=== PATIENT | male | born 1950 | race Caucasian/White ===

== ENCOUNTER 2019-10-06 10:38 | Emergency (ER) | payer MEDICARE, BC ==
[2019-10-06 10:50] VITALS: BP 149/80
--- NOTE | 2019-10-06 11:25 | XRAY Report ---
Reason: trauma, limited ROM/pain,bruising Procedure Date: 10/06/2019 Accession Number: [id number] / [id number] Procedure: XR - Shoulder 3 View RT CPT Code: Final Report FULL RESULT: EXAM: RIGHT SHOULDER RADIOGRAPHY EXAM DATE: 10/06/2019 11:17 AM. CLINICAL HISTORY: Right shoulder pain and limited range of motion after fall COMPARISON: None. TECHNIQUE: 3 views. FINDINGS: Bones: No fracture or bone lesion. Joints: Normal alignment at the glenohumeral and acromioclavicular joints. Soft tissues: Amorphous calcifications superior to the acromioclavicular joint. Partially imaged median sternotomy wires. The visualized hemithorax is otherwise unremarkable. No soft tissue swelling. IMPRESSION: 1. Amorphous calcifications superior to the acromioclavicular joints, which could represent degenerative change or sequela of prior soft tissue injury. 2. No acute bony abnormality. RADIA
--- NOTE | 2019-10-06 12:15 | ED Physician Documentation ---
PD HPI UPPER EXT INJURY - Stated complaint Stated Complaint: R SHOULDER INJURY - Chief complaint Chief Complaint: Ext Problem - History obtained from History obtained from: Patient - History of Present Illness Location: Other (5 days ago he was tripped by dog and [place] He has had bruising in that area and pain in the shoulder ever since. No other injuries.) Review of Systems Constitutional: denies: Fever, Chills Cardiac: denies: Chest pain / pressure, Palpitations Respiratory: denies: Dyspnea, Cough PD PAST MEDICAL HISTORY - Present Medications Home Medications: Ambulatory Orders Medication Instructions Recorded Confirmed Atenolol [Tenormin] 50 mg PO 10/06/19 Atorvastatin [Lipitor] 10/06/19 10/06/19 Hydrochlorothiazide 12.5 mg PO 10/06/19 Physical Therapy 1 unit TD ONCE #1 10/06/19 amLODIPine [Norvasc] 5 mg PO ONCE 10/06/19 10/06/19 - Allergies Allergies/Adverse Reactions: Allergies Allergy/AdvReac Type Severity Reaction Status Date / Time No Known Drug Allergies Allergy Verified 10/06/19 10:45 PD ED PE NORMAL - Vitals Vital signs reviewed: Yes - General General: Alert and oriented X 3, No acute distress - Neck Neck: Supple, no meningeal sign, No bony TTP - Extremities Extremities: Other (He is tender over the right acromioclavicular joint, there is no glenohumeral tenderness. He does have a lot of pain with abduction and can only come up to about 20 or 30 degrees. Internal/external rotation elicits some pain but not too much. Neurovascularly intact in the hand. There is bruising over the bicep, but no tenderness there.) - Neuro Neuro: Alert and oriented X 3, Normal speech Results - Vitals Vitals: Vital Signs - 24 hr 10/06/19 10:42 Temperature 36.5 C Heart Rate 57 L Respiratory 18 Rate Blood Pressure 149/80 H O2 Saturation 100 Oxygen O2 Source Room air - Rads (name of study) 3 views of the right shoulder Radiology: EMP read contemporaneously (Degenerative changes without acute trauma) PD MEDICAL DECISION MAKING - ED course ED course: 69-year-old gentleman with an isolated right shoulder injury 5 days ago, seems like a combination of a mild AC joint separation along with a shoulder sprain or strain. He was given a sling but discussed the limitations of sling use and range of motion exercises and a order for physical therapy. He declined prescription pain medication. Departure - Departure Disposition: 01 Home, Self Care Clinical Impression: Right shoulder strain Qualifiers: Encounter type: initial encounter Qualified Code(s): S46.911A - Strain of unspecified muscle, fascia and tendon at shoulder and upper arm level, right arm, initial encounter Condition: Good Record reviewed to determine appropriate education?: Yes Instructions: ED Sprain AC Joint, Exercises Shoulder Flexible Shaft Winder Rotation Follow-Up: [facility] [Provider Group] Prescriptions: Physical Therapy 1 unit TD ONCE #1 Comments: As discussed, your x-ray looks okay except for some chronic degenerative changes. Follow-up with the orthopedic surgeon in a week or 2 if not improving, remember to do the range of motion exercises and not use the sling all the time. Ibuprofen as needed for pain.
== END 2019-10-06 12:20 | disposition home or self-care (01) ==
LOC: ED 10:38
DX: S46.811A Strain of other muscles, fascia and tendons at shoulder and upper arm level, right arm, initial encounter (principal); W01.0XXA Fall on same level from slipping, tripping and stumbling without subsequent striking against object, initial encounter; Y92.830 Public park as the place of occurrence of the external cause
CPT/HCPCS: 99283

== ENCOUNTER 2021-09-30 18:13 | Emergency (ER) | payer MEDICARE, BC ==
--- NOTE | 2021-09-30 18:51 | ED Physician Documentation ---
History of Present Illness - Stated complaint Stated Complaint: WEAKNESS - Chief complaint Chief Complaint: General - History obtained from History obtained from: Patient - History of Present Illness Timing: How many days ago Pain level max: 0 Pain level now: 0 - Additonal information Additional information: Patient is a 71-year-old male who presents to the emergency department stating that over the past 3 days he has felt lightheaded and near syncopal. Usually occurs when standing and walking. Denies any chest pain or shortness of breath. He does have a history of anemia from a gastric ulcer. He states he was recently started on high-dose ibuprofen and steroids for sciatica. He states he has been eating and drinking very little over the past several days secondary to not feeling well. No fevers. No chills. He is Covid vaccinated. Took a Covid test today which was negative. No vomiting. No diarrhea. Has not noticed any dark or tarry stools. Has a history of hypertension and is on multiple medications for this. Review of Systems Ten Systems: 10 systems reviewed and negative Constitutional: denies: Fever, Chills Respiratory: denies: Cough GI: denies: Nausea, Vomiting, Diarrhea Skin: denies: Rash Musculoskeletal: denies: Neck pain, Back pain Neurologic: reports: Generalized weakness. denies: Focal weakness, Numbness, Syncope, Seizure, Confused, Altered mental status, Headache PD PAST MEDICAL HISTORY - Past Medical History Past Medical History: Yes Cardiovascular: Hypertension - Past Surgical History Past Surgical History: Yes General: EGD - Present Medications Home Medications: Ambulatory Orders Medication Instructions Recorded Confirmed Atenolol [Tenormin] 50 mg PO 10/06/19 Atorvastatin [Lipitor] 10/06/19 10/06/19 Physical Therapy 1 unit TD ONCE #1 10/06/19 amLODIPine [Norvasc] 5 mg PO ONCE 10/06/19 10/06/19 hydroCHLOROthiazide 12.5 mg PO 10/06/19 [Hydrochlorothiazide] Potassium Chloride [K-Dur] 20 meq PO 0800 #5 tablet 09/30/21 - Allergies Allergies/Adverse Reactions: Allergies Allergy/AdvReac Type Severity Reaction Status Date / Time No Known Drug Allergies Allergy Verified 09/30/21 18:18 - Living Situation Living Arrangement: reports: At home - Social History Does the pt smoke?: No Smoking Status: Never smoker Does the pt have substance abuse?: No - Family History Family history: reports: Non contributory PD ED PE NORMAL - Vitals Vital signs reviewed: Yes - General General: Alert and oriented X 3, No acute distress - HEENT HEENT: Moist mucous membranes - Neck Neck: Supple, no meningeal sign - Cardiac Cardiac: RRR, Strong equal pulses - Respiratory Respiratory: No respiratory distress, Clear bilaterally - Abdomen Abdomen: Soft, Non tender, Non distended - Back Back: No CVA TTP, No spinal TTP - Derm Derm: Warm and dry, No rash - Extremities Extremities: No edema, No calf tenderness / cord - Neuro Neuro: Alert and oriented X 3, lighter 2-12 intact, No motor deficit, No sensory deficit, Normal speech Eye Opening: Spontaneous Motor: Obeys Commands Verbal: Oriented GCS Score: 15 - Psych Psych: Normal mood, Normal affect Results - Vitals Vitals: Vital Signs - 24 hr 09/30/21 09/30/21 09/30/21 18:18 18:20 18:58 Temperature 36.5 C 36.5 C Heart Rate 56 L 56 L Heart Rate [ 58 L Sitting] Heart Rate [ 57 L Standing] Heart Rate [ 57 L Supine] Respiratory 16 16 Rate Blood Pressure 133/73 H 113/73 Blood Pressure 141/78 H [Sitting] Blood Pressure 141/77 H [Standing] Blood Pressure 146/78 H [Supine] O2 Saturation 100 100 09/30/21 20:22 Temperature Heart Rate 62 Heart Rate [ Sitting] Heart Rate [ Standing] Heart Rate [ Supine] Respiratory 15 Rate Blood Pressure 142/73 H Blood Pressure [Sitting] Blood Pressure [Standing] Blood Pressure [Supine] O2 Saturation 98 Oxygen O2 Source Room air - Labs Labs: Laboratory Tests 09/30/21 09/30/21 09/30/21 18:50 18:50 18:50 WBC 7.8 RBC 4.83 Hgb 14.2 Hct 41.2 L MCV 85.3 MCH 29.4 MCHC 34.5 RDW 12.0 Plt Count 360 MPV 9.6 Neut # (Auto) 5.2 Lymph # (Auto) 1.6 [place] # (Auto) 0.9 Eos # (Auto) 0.1 Baso # (Auto) 0.0 Absolute Nucleated RBC 0.00 Nucleated RBC % 0.0 Sodium Potassium Chloride Carbon Dioxide Anion Gap BUN Creatinine Estimated GFR (MDRD) Glucose Calcium Phosphorus Magnesium Total Bilirubin AST ALT Alkaline Phosphatase Troponin I High Sens 23.8 H* B-Natriuretic Peptide 55 Total Protein Albumin Globulin Albumin/Globulin Ratio Lipase 09/30/21 09/30/21 09/30/21 19:07 19:40 20:53 WBC RBC Hgb Hct MCV MCH MCHC RDW Plt Count MPV Neut # (Auto) Lymph # (Auto) [place] # (Auto) Eos # (Auto) Baso # (Auto) Absolute Nucleated RBC Nucleated RBC % Sodium 137 Potassium 2.5 L* Chloride 96 L Carbon Dioxide 27 Anion Gap 14.0 H BUN 32 H Creatinine 1.2 Estimated GFR (MDRD) 60 L Glucose 114 H Calcium 10.0 Phosphorus 2.9 Magnesium 2.2 Total Bilirubin 0.8 AST 30 ALT 20 Alkaline Phosphatase 50 Troponin I High Sens 18.8 B-Natriuretic Peptide Total Protein 7.6 Albumin 4.0 Globulin 3.6 Albumin/Globulin Ratio 1.1 Lipase 26 PD MEDICAL DECISION MAKING - ED course Complexity details: reviewed results, re-evaluated patient, considered differential, d/w patient ED course: 71-year-old male with lightheadedness and dizziness for the past 3 days. Negative troponin x2. Initial EKG was concerning for potential ST changes, repeat ECG Including posterior leads does not show any ST changes consistent with ischemia. He does not have any chest pain or shortness of breath. His potassium was replaced IV and orally. IV fluids given. Symptoms have fully resolved. Ambulating without any difficulty in the emergency department. Likely hypokalemia secondary to his medication. Will place him on potassium for home and have him follow-up with his doctor. Patient counseled regarding signs and symptoms for which I believe and urgent re-evaluation would be necessary. Patient with good understanding of and agreement to plan and is comfortable going home at this time This document was made in part using voice recognition software. While efforts are made to proofread this document, sound alike and grammatical errors may occur. Departure - Departure Disposition: 01 Home, Self Care Clinical Impression: Dehydration, Hypokalemia Condition: Good Instructions: ED Dehydration, ED Potassium Deficiency Follow-Up: your,doctor in 1 week [Other] Prescriptions: Potassium Chloride [K-Dur] 20 meq PO 0800 #5 tablet Comments: Please have your potassium rechecked with your doctor in 1 week. Drink plenty of fluids. Return if you worsen. Your prescriptions were sent to [facility].
[2021-09-30 18:54] LABS: BASOPHILS % (AUTO) 0.4 %; EOSINOPHILS # (AUTO) 0.1 10^3/uL (0.0-0.7); EOSINOPHILS % (AUTO) 1.4 %; HCT - HEMATOCRIT 41.2 % (42.0-52.0); HGB - HEMOGLOBIN 14.2 g/dL (14.0-18.0); LYMPHOCYTES # (AUTO) 1.6 10^3/uL (1.5-3.5); LYMPHOCYTES % (AUTO) 20.2 %; MEAN CORPUSCULAR HEMOGLOBIN 29.4 pg (27.0-31.0); MEAN CORPUSCULAR HGB CONC 34.5 g/dL (32.0-36.0); MEAN CORPUSCULAR VOLUME 85.3 fL (80.0-94.0); MEAN PLATELET VOLUME 9.6 fL (7.4-11.4); MONOCYTES # (AUTO) 0.9 10^3/uL (0.0-1.0); MONOCYTES % (AUTO) 11.3 %; NEUTROPHILS # (AUTO) 5.2 10^3/uL (1.5-6.6); NEUTROPHILS % (AUTO) 66.3 %; PLT - PLATELET COUNT 360 10^3/uL (130-450); RED BLOOD COUNT 4.83 10^6/uL (4.70-6.10); WHITE BLOOD COUNT 7.8 x10^3/uL (4.8-10.8)
--- NOTE | 2021-09-30 19:09 | XRAY Report ---
PROCEDURE: Chest 1 View X-Ray INDICATIONS: Chest Pain TECHNIQUE: One view of the chest was acquired. COMPARISON: None. FINDINGS: Surgical changes and devices: There are postsurgical changes in the mediastinum with 3 intact-appeari ng sternal wires. Lungs and pleura: No pleural effusions or pneumothorax. Lungs are clear. Mediastinum: Mediastinal contours appear normal. Heart size is normal. Bones and chest wall: No suspicious bony lesions. Overlying soft tissues appear unremarkable. IMPRESSION: 1. No acute cardiopulmonary disease. Reviewed by: Deep Gazra MD on 09/30/2021 7:07 PM [facility] Approved by: Deep Garza MD on 09/30/2021 7:07 PM [facility] Station ID: [id number]
[2021-09-30 19:25] LABS: ALBUMIN/GLOBULIN RATIO 1.1 (1.0-2.2); BILIRUBIN,TOTAL 0.8 mg/dL (0.2-1.0); CREATININE 1.2 mg/dL (0.6-1.2); TOTAL PROTEIN 7.6 g/dL (6.7-8.2)
[2021-09-30 19:26] LABS: POTASSIUM 2.5 mmol/L (3.5-5.0)
[2021-09-30] MEDS ORDERED: SODIUM CHLORIDE 0.9% 1,000 ML IV STA (19:31)
[2021-09-30] MEDS ORDERED: POTASSIUM CHLORIDE 20 MEQ TABLET PO STA (19:31)
[2021-09-30] MEDS ORDERED: POTASSIUM CHLOR 10 MEQ/100 ML 10 MEQ/100 ML BAG IV STA (19:31)
[2021-09-30 20:03] LABS: MAGNESIUM 2.2 mg/dL (1.7-2.8); PHOSPHORUS 2.9 mg/dL (2.5-4.6)
[2021-09-30 21:51] VITALS: BP 140/75
== END 2021-09-30 21:51 | disposition home or self-care (01) ==
LOC: ED 18:13
DX: E86.0 Dehydration (principal); E87.6 Hypokalemia; I10 Essential (primary) hypertension
CPT/HCPCS: 36415; 71045; 80053; 83690; 83735; 83880; 84100; 84484; 85025; 93005; 96365; 99283; 99284; A9270

== ENCOUNTER 2022-06-09 06:40 | Outpatient (CLI) | payer MEDICARE, BC ==
--- NOTE | 2022-06-09 10:41 | Ultrasound Report ---
PROCEDURE: Aorta Screening INDICATIONS: HIST OF SMOKING TECHNIQUE: Real time scanning was performed of the aorta and iliac arteries, with image documentatio n. COMPARISON: None FINDINGS: Aorta: Proximal aortic diameter measures 3.3 x 3.2 cm. Mid-aorta measures 2.7 x 2.1 cm. Distal aor tic diameter is 1.7 x 1.8 cm. Iliac arteries: Right common iliac artery measures 1.1 x 1.1 cm. Left common iliac artery measures 0.9 x 0.9 cm. 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 Follow-up in 3 years or sooner is recommended. Reviewed by: Vern Harkins MD on 06/09/2022 10:39 AM PDT Approved by: Vern Harkins MD on 06/09/2022 10:39 AM PDT Station ID: [id number]
== END 2022-06-09 06:41 | disposition home or self-care (01) ==
LOC: DI 06:40
PROVIDERS: ATTEND Nurse Practitioner Family
DX: Z13.6 Encounter for screening for cardiovascular disorders (principal); I71.9 Aortic aneurysm of unspecified site, without rupture; Z87.891 Personal history of nicotine dependence

== ENCOUNTER 2024-03-22 10:13 | Outpatient (CLI) | payer MEDICARE, BC ==
--- NOTE | 2024-03-22 11:29 | XRAY Report ---
PROCEDURE: Tib/Fib LT INDICATIONS: PAIN OF LEFT LOWER LEG TECHNIQUE: 2 views of the tibia and fibula were acquired. COMPARISON: None. FINDINGS: Bones: Resection of the mid fibula is identified with numerous surgical clips present. An orthopedic screw is seen i in the proximal tibia. Chondrocalcinosis, DJD of the knee partially visualized. Soft tissues: Atherosclerotic vascular ossifications present IMPRESSION: Postop changes No acute osseous abnormality Reviewed by: Bc Celis MD on 03/22/2024 11:28 AM PDT Approved by: Bc Celis MD on 03/22/2024 11:28 AM PDT Station ID: [id number]
== END 2024-03-22 10:14 | disposition home or self-care (01) ==
LOC: DI.S 10:13
PROVIDERS: ATTEND Nurse Practitioner Family
DX: M79.662 Pain in left lower leg (principal)